=== PATIENT | male | born 1950 | race Caucasian/White ===

== ENCOUNTER → 2020-09-15 09:41 | Outpatient (CLI) | payer OTHER, SELFPAY ==
[2020-09-15 12:01] LABS: COVID19 -Nasal RAPID Negative (Negative)
== END ==
PROVIDERS: Visit Provider Physician Assistant
DX: Z01.812 Encounter for preprocedural laboratory examination (principal); Z20.822 Contact with and (suspected) exposure to COVID-19
CPT/HCPCS: 87635; C9803

== ENCOUNTER 2020-09-17 12:02 | Day surgery (SDC) | payer OTHER, SELFPAY ==
--- NOTE | 2020-09-17 | PATH_ITS ---
[facility] Accession Number: [id number] . 01 Material submitted: . PART A: colon - ASCENDING COLON POLYP X8; 6MM TO 8MM PART B: colon - VIABLE POLYP BIOPSY, ASCENDING COLON; 1.5CM PART C: colon - TRANSVERSE COLON POLYP; 11MM PART D: colon - TRANSVERSE COLON POLYP; 2MM PART E: colon - DESCENDING COLON POLYP X3; 4MM; 6MM; 3MM PART F: colon - SIGMOID COLON POLYP X2; 8MM; 3MM PART G: colon - SIGMOID COLON POLYP BIOPSY AT 45CM; 1.25CM . 02 Diagnosis: A. Ascending Colon, Polyp x8, 6 mm to 8 mm, Biopsies: Tubular adenomas. . B. Ascending Colon, Viable Polyp 1.5 cm, Biopsy: Superficial fragments of tubulovillous adenoma. No evidence of malignancy or high-grade dysplasia. . C. Transverse Colon, Polyp 11 mm, Biopsy: Tubular adenoma. . D. Transverse Colon, Polyp 2 mm, Biopsy: Tubular adenoma. . E. Descending Colon, Polyp x3, 4 mm, 6 mm, 3 mm, Biopsies: Tubular adenomas. . F. Sigmoid Colon, Polyp x2, 8 mm, 3 mm, Biopsies: Tubular adenomas. . G. Sigmoid Colon, Polyp at 45 cm, 1.25 cm, Biopsy: Tubulovillous adenoma. No evidence of malignancy or high-grade dysplasia. [facility] 09/21/2020 1542 Local . 02 Electronically signed: . Ana Sanders MD, Pathologist NPI- [id number] . 01 Gross description: . A. Received in formalin, labeled ascending colon polyp x8, are multiple fragments of padgett, soft tissue measuring 2.5 x 1.8 x 0.8 cm in aggregate. All tissue is entirely submitted in cassette A1. B. Received in formalin, labeled viable polyp ascending colon 1.5 cm, is one fragment of padgett, soft tissue measuring 0.5 x 0.3 x 0.2 cm. The tissue is entirely submitted in cassette B1. C. Received in formalin, labeled transverse colon polyp 11 mm, are two fragments of padgett, soft tissue measuring 0.3 x 0.2 x 0.1 cm to 0.2 x 0.2 x 0.2 cm. One larger piece of tissue is also observed, measuring 0.8 x 0.5 x 0.7 cm. The two smaller fragments are entirely submitted in cassette C1. The larger piece is inked, trisected, and entirely submitted in cassette C1. Cassette C1 contains a total of five pieces. D. Received in formalin, labeled transverse colon polyp 2 mm, is one fragment of padgett, soft tissue measuring 0.4 x 0.4 x 0.3 cm. The tissue is entirely submitted in cassette D1. E. Received in formalin, labeled descending colon polyp x3, are five fragments of padgett, soft tissue measuring 0.8 x 0.3 x 0.3 cm to 0.5 x 0.3 x 0.2 cm. All five fragments are entirely submitted in cassette E1. F. Received in formalin, labeled sigmoid colon polyp 8 mm, 3 mm x2, are four fragments of padgett, soft tissue measuring 0.4 x 0.4 x 0.3 cm to 0.3 x 0.2 x 0.1 cm. All four fragments are entirely submitted in cassette F1. G. Received in formalin, labeled sigmoid polyp biopsy at 45 cm, is one fragment of padgett, soft tissue measuring 0.6 x 0.4 x 0.3 cm. The tissue is entirely submitted in cassette G1. ([id number]) /FRR 09/18/2020 1420 Local . 02 Pathologist provided ICD-10: D12.2, D12.3, D12.4, D12.5 . 02 CPT . 374356, 500505, [id number], [id number], 633609, [id number], 570483 Performed at: [address] [facility] [address], [place], [place] [id number] MD Juan Ramon Fajardo MD Phone: [phone] Performed at: [facility] [address] [place] [id number] MD Ana Sanders MD Phone: [phone]
--- NOTE | 2020-09-17 09:28 | PM.HP.1 ---
History of Present Illness History of Present Illness Date Patient Seen: 09/17/20 Chief complaint: SCREENING COLONOSCOPY Narrative: 69 year old male or comes in today for consideration of a screening colonoscopy. Three lifetime endoscopies, 1 flexible sigmoidoscopy and two colonoscopies, 3 years overdue for his repeat. History of colon polyps, records not available at time of dictation. Patient reports that he had 14 polyps at his first colonoscopy and 7 polyps at his last colonoscopy. There have been no lower GI symptoms suggesting disease such as change in bowel habits, bleeding, abdominal pain or anemia. There's been no family history of colon cancer or colon polyps. Overall health issues have been stable, including no major cardiac events for at least 6 weeks. PCP: JOHANNA Hernandes Past medical history: Eczema Hypertension Colon polyps Past surgical history: Colonoscopy x2 Flexible sigmoidoscopy x1 Family history: Father: at 56, cancer Mother: in 7, cancer Siblings: 20 sister, healthy Social history: , lives alone. Retired staffing administrator. 2-3 to drinks per day. Patient History Medical History (Updated 09/17/20 @ 11:59 by Carey Pacheco RN) Erectile dysfunction HTN (hypertension) Pre-diabetes Meds Home Medications and Allergies Home Medications Medication Instructions Recorded Confirmed Type amlodipine benzoate 5 mg PO DAILY 09/17/20 09/17/20 History omeprazole 20 mg PO QAM 09/17/20 09/17/20 History sildenafil 100 mg PO PRN PRN 09/17/20 09/17/20 History Allergies Allergy/AdvReac Type Severity Reaction Status Date / Time No Known Drug Allergies Allergy Verified 09/17/20 11:53 Review of Systems Review of Systems ROS: Yes All systems reviewed with the patient and are negative except as otherwise documented Exam Narrative Exam Narrative: GENERAL: Alert and oriented, appearing stated age and in no acute distress. HEENT: Head normocephalic/atraumatic. Pupils equal, round, and reactive to light and accomodation. Extraocular muscles intact. Tympanic membranes clear. Nasal mucosa moist, septum midline. Oral mucosa moist, no lesions. Neck soft and supple, no lymphadenopathy. LUNGS: Clear to ausculation bilaterally, no wheezes, rhonchi or rales. CV: Normal S1 and S2 with regular rate and rhythm, no audible murmurs, rubs or gallops. ABDOMEN: Soft, non-tender, non-distended, no organomegaly. Positive bowel sounds. EXTREMITIES: No clubbing, cyanosis, or edema. NEURO: Cranial nerves II through XII grossly intact, no focal deficits. PSYCH: Alert and oriented x 3. SKIN: No concerning lesions. Assessment & Plan Assessment & Plan narrative: 1. History of colon polyps 2. Screening for colon cancer Plan for colonoscopy. The nature and character of the procedure as well as anticipated results were discussed. The possibility of not completing the procedure was also discussed. Possible complications including aspiration pneumonia, bleeding, perforation and reaction to medications either for sedation or preparation and missed lesions were discussed. Questions were answered and proceeding to the colonoscopy was elected. Informed consent signed. I sincerely appreciate the referral allowing me to participate in this patient's care. Please contact me with any questions or concerns.
--- NOTE | 2020-09-17 09:32 | PM.OP.ENDO ---
Operative Date/Time/Diagnoses Date of procedure: 09/17/20 Procedure Notes SCOAP/Timeout: 13:18 Procedure in detail: ENDOSCOPIST: Xochitl Jo MD Sedation RN: Alfredo Jones RN Sedation start time: 1:19 pm Sedation end time: 2:44 p.m. PROCEDURE: Colonoscopy with cold snare polypectomies and methylene blue lifts, SPOT placement x 2 INDICATIONS: 1. History of colon polyps 2. Screening for colon cancer MEDICATION: Levsin 0.125 mg sublingual, incremental doses of Versed and fentanyl until appropriate level sedation achieved. ASA CLASS: 2 CECAL WITHDRAWAL TIME: 1 hour 21 minutes COMPLICATIONS: None. EXTENT OF PROCEDURE: Cecum. QUALITY OF PREP: Good with portions of liquid stool. PROCEDURE: Prior to insertion of the colonoscope, a digital rectal examination was accomplished with circumferential palpation of the distal rectal mucosa without significant findings being noted. The high-definition colonoscope was passed into the rectum in the usual fashion and advanced over to the cecum without difficulty. The ileocecal valve, appendiceal stoma, and medial wall all could be inspected and no abnormalities were seen. ASCENDING COLON: As the colonoscope was withdrawn, care was taken to expose and inspect the haustral folds and 8 polyps were seen, 8-10 mm in size. Each was lifted with methylene blue and removed with cold snare, excellent hemostasis noted. A larger polyp, 1.5 cm in size was noted to be friable and covered with adherent mucous, targeted biopsy taken x 1 and SPOT placed 2 cm distal to polyp, on medial and lateral colonic nunez. HEPATIC FLEXURE: Normal, no polyps, diverticula or other abnormalities. TRANSVERSE COLON: Two polyps seen. The 2 mm polyp was removed with cold biopsy forceps. The 11 mm polyp was lifted with methylene blue and removed with cold biopsy forceps, excellent hemostasis noted. Otherwise, no diverticula or other abnormalities. DESCENDING COLON: Three polyps seen, 4-6 mm, removed with cold biopsy forceps, excellent hemostasis. Otherwise, no diverticula or other abnormalities. SIGMOID COLON: A small 3 mm polyp was seen and removed with cold biopsy forceps. A 1.25 cm polyp on broad based stalk was also seen, targeted biopsy taken x 1 and SPOT placed x 2, 2 cm distal to lesion on medial and lateral colonic nunez. Otherwise, no diverticula or other abnormalities. RECTUM: Normal. J maneuver was produced. There was no significant perianal disease. The J maneuver was broken. The remainder of the rectum was inspected and there was no external hemorrhoid disease. The scope was withdrawn. IMPRESSION: 1. Ascending polyp x8, 6-8 mm, lifted with methylene blue and removed with cold snare 2. Ascending polyp x1, 1.5 cm, friable, targeted biopsy x1, unresected, SPOT placement x2 3. Transverse polyp x2, 2-11 mm, smaller polyp removed with cold snare, larger polyp lifted with methylene blue and removed with cold snare 4. Descending polyp x3, 4-6 mm, removed with cold biopsy forceps 5. Sigmoid polyp times x1, 3 mm, removed with cold snare 6. Sigmoid polyp x1, 1.25 cm broad-based stalk, targeted biopsy taken x1, unresected, SPOT placement x2 PLAN: 1. Follow-up in clinic status post pathology results. 2. Secondary to prolonged procedure time due to 14 polypectomies and risk of perforation, large polyps x [address] and patient will need to return for follow-up colonoscopy for remaining 2 large unresected polyps. The possibility of a missed lesion including a malignancy has been discussed with the patient previously. Potential alarm symptoms have been discussed and should be reported immediately.
[2020-09-17] MEDS: HYOSCYAMINE 0.125 MG TABLET PO (12:17)
[2020-09-17 12:24] VITALS: BP 139/91; PULSE 78; RESP 16; TEMP 36.5; O2SAT 97; BMI 29.8
[2020-09-17] MEDS: LACTATED RINGERS 1,000 ML 200 ML IV ×2 (12:31→14:57)
[2020-09-17] MEDS: MIDAZOLAM 5 MG/5 ML VIAL IV (13:37)
[2020-09-17] MEDS: fentaNYL 250 MCG/5 ML INJ IV (13:38)
[2020-09-17 14:51] VITALS: BP 122/75; PULSE 69; RESP 15; TEMP 36.6; O2SAT 96
[2020-09-17 14:56] VITALS: BP 133/91; PULSE 67; RESP 16; O2SAT 95
[2020-09-17] MEDS: METHYLENE BLUE 50 MG/10 ML VIAL INJ (14:56)
[2020-09-17 15:02] VITALS: BP 135/91; PULSE 60; RESP 11; O2SAT 97
[2020-09-17 15:08] VITALS: BP 137/96; PULSE 62; RESP 17; TEMP 36.2; O2SAT 96
[2020-09-17 15:30] VITALS: BP 131/84; PULSE 69; RESP 16; TEMP 36.4; O2SAT 97
--- NOTE | 2020-09-17 15:51 | SUR.PHASEII ---
Pt ready to go, called, left when ready and left in stable condition.
--- NOTE | 2020-09-17 15:52 | SUR.PHASEII ---
Late entry: Procedure note not completed, pt wanting to go, report to be mailed to pt., note left for RN to do.
== END 2020-09-17 15:41 | disposition home or self-care (01) ==
PROVIDERS: PCP Nurse Practitioner Family; Referring Provider Student in an Organized Health Care Education/Training Program; Visit Provider Student in an Organized Health Care Education/Training Program
PROC: 0DJD8ZZ Inspection of Lower Intestinal Tract, Via Natural or Artificial Opening Endoscopic (ICD-10-PCS; CPT 45378; principal; 2020-09-17 13:00)
DX: Z12.11 Encounter for screening for malignant neoplasm of colon (principal); Z86.010 Personal history of colon polyps; I10 Essential (primary) hypertension; D12.2 Benign neoplasm of ascending colon; D12.3 Benign neoplasm of transverse colon; D12.4 Benign neoplasm of descending colon; D12.5 Benign neoplasm of sigmoid colon
CPT/HCPCS: 45385; 45381; 45380; J2250; J3010; Q9968

== ENCOUNTER 2021-03-01 08:52 | Emergency (ER) | payer OTHER, SELFPAY ==
[2021-03-01] VITALS (9 sets, daily range): BP systolic 111–132; BP diastolic 60–86; PULSE 69–91; RESP 18–26; TEMP 36.6; O2SAT 88–97; BMI 28.5
[2021-03-01 09:16] LABS: Add Manual Diff / Slide Review NO; Basophils Absolute Auto 100 /uL (0-100); Basophils Percent Auto 0.4 % (0-2); Eosinophils Absolute Auto 0 /uL (0-450); Hemoglobin 11.2 g/dL (13.5-17.5); Lymphocytes Absolute Auto 600 /uL (1100-4500); Lymphocytes Percent Auto 3.8 % (25-40); Monocytes Absolute Auto 1600 /uL (0-900); Neutrophils Absolute Auto 13800 /uL (1500-7000); Neutrophils Percent Auto 85.8 % (50-75); Platelet Count 486 X10^3/uL (150-400); Red Blood Cell Count 3.86 X10^6/uL (4.5-5.9); Red Cell Distribution Width 14.1 % (11.6-14.8)
--- NOTE | 2021-03-01 09:16 | ED_ITS ---
HPI - General Adult General Chief complaint: Weakness Stated complaint: colon cancer surgery last week, no energy Time Seen by Provider: 03/01/21 09:03 Source: patient Mode of arrival: Wheelchair History of Present Illness HPI narrative: Patient is a 70-year-old male. Four weeks ago underwent a colon resection after being diagnosed with colon cancer. The colon cancer was diagnosed after 2 polyps were found on a routine colonoscopy. He states that the procedure went well. He had a follow-up 2 weeks ago with the surgeon. Was told to follow up locally in that he did not need to return to the surgery office. He states that for the past couple weeks he has had fatigue, decreased appetite, some nausea but he feels like the decreased appetite is not because he is having nausea. He has no abdominal pain. Has had decreased stool output but he feels like it is because he has not been eating. No painful bowel movements. No blood in his stool. No abdominal pain. No urinary symptoms. No rashes. No headache. No sore throat. No fevers. No vision changes. Is also been noticed that he has been somewhat short of breath. No chest pain. Has been having some coughing. He is vaccinated against COVID-19. No underlying lung issues. Has not tried anything for symptoms prior to arrival. Related Data Home Medications Medication Instructions Recorded Confirmed amlodipine benzoate 5 mg PO DAILY 09/17/20 09/17/20 omeprazole 20 mg PO QAM 09/17/20 09/17/20 sildenafil 100 mg PO PRN PRN 09/17/20 09/17/20 Allergies Allergy/AdvReac Type Severity Reaction Status Date / Time No Known Drug Allergies Allergy Verified 03/01/21 09:07 Review of Systems Constitutional Constitutional: Reports fatigue, Denies fever(s), Denies headache(s), Reports lethargy and Denies weight loss Eyes Eyes: Reports system reviewed and no additional complaints, except as documented ENT Ears, Nose, Mouth, and Throat: Reports system reviewed and no additional comp laints, except as documented, Reports as per HPI, Denies vertigo, Denies dizziness and Denies headache(s) Cardiovascular Cardiovascular: Reports as per HPI, Reports system reviewed and no additional complaints, except as documented, Reports dyspnea and Reports dyspnea on exertion Respiratory Respiratory: Reports as per HPI, Reports system reviewed and no additional complaints, except as documented, Reports cough, Reports dyspnea and Reports dyspnea on exertion Gastrointestinal Gastrointestinal: Reports as per HPI, Reports system reviewed and no additional complaints, except as documented, Denies change in bowel habits and Reports nausea Genitourinary Genitourinary: Reports system reviewed and no additional complaints, except as documented and Reports as per HPI Musculoskeletal Musculoskeletal: Reports system reviewed and no additional complaints, except as documented, Denies myalgias, Denies arthralgias, Denies myalgias and Denies numbness Integumentary/Breasts Skin/Breast: Reports system reviewed and no additional complaints, except as documented Neurologic Neurologic: Reports system reviewed and no additional complaints, except as documented, Denies confusion, Denies vertigo, Denies dizziness, Denies headache(s) and Denies numbness Psychiatric Psychiatric: Reports system reviewed and no additional complaints, except as documented and Denies confusion Endocrine Endocrine: Reports fatigue Hematologic/Lymphatic On Anticoagulants: No Allergic/Immunologic Allergic/Immunologic: Reports system reviewed and no additional complaints, except as documented Patient History Medical History Colon cancer Erectile dysfunction HTN (hypertension) Pre-diabetes Social History household members: significant other Smoking Status: Never smoker alcohol intake: current Smoking Status: Never smoker alcohol intake frequency: 0-2 drinks per day Substance Use Type: marijuana Exam Initial Vital Signs Initial Vital Signs: Vital Signs Pulse Rate 91 H 03/01/21 08:56 Blood Pressure 132/82 03/01/21 08:56 Pulse Oximetry 88 L 03/01/21 08:56 Const General: cooperative, comfortable, well developed and well groomed [facility] Head: normal to inspection and normocephalic Nose: external nose normal Face and sinus: normal facial exam Eyes General: appearance normal, both eyes and all related structures Chest Chest: No crepitus and No tenderness Resp Effort & Inspection: labored and tachypneic Auscultation: clear to auscultation bilaterally Cardio Rate: regular rate Rhythm: regular rhythm Pulses: radial pulses present GI Inspection: incision (Well-healed surgical incisions is consistent with stated surgical history) Palpation: soft, No firm and No tender Skin Lesions: no lesions Rashes: no rashes Other: Well-healed surgical incisions on his abdomen that are consistent with a stated history of your Neuro General: patient alert, patient awake, patient oriented x3 and moves all extremities Cognition: normal cognition Speech: speech normal Extrem General: normal to inspection, capillary refill normal and No edema Psych Appearance: grossly normal and well kempt Course Orders Ordered: ED Orders 03/01/21 09:03 EKG-12 Lead Stat 03/01/21 09:09 Complete Blood Count AUTO DIFF Stat Comprehensive Metabolic Panel Stat Lactate (Lactic Acid) Stat Lipase Stat NT-proBNP (BNP-Adult 18+) Stat Procalcitonin Stat Troponin & CK Cardiac Panel Stat 03/01/21 09:15 CT angio chest PE protocol Stat 03/01/21 09:24 Respiratory Panel (Film Array) Stat Discontinued Medications Sodium Chloride (Normal Saline 0.9%) 1,000 mls @ 500 mls/hr IV BOLUS ONE Stop: 03/01/21 11:14 Last Infusion: 03/01/21 11:28 Dose: 0 mls/hr Documented by: Admin: 03/01/21 09:32 Dose: 500 mls/hr Documented by: VALERIA Vital Signs Vital signs: Vital Signs - 8 hr 03/01/21 08:56 03/01/21 09:00 03/01/21 09:30 Temperature 97.8 F Pulse Rate 91 H 88 79 Respiratory Rate 18 25 H Blood Pressure 132/82 132/80 125/73 Pulse Oximetry 88 L 95 96 03/01/21 10:00 03/01/21 10:14 03/01/21 10:30 Temperature Pulse Rate 75 73 72 Respiratory Rate 26 H 20 22 Blood Pressure 111/60 123/68 116/70 Pulse Oximetry 95 97 95 03/01/21 11:00 03/01/21 11:30 03/01/21 12:00 Temperature Pulse Rate 69 70 69 Respiratory Rate 21 22 21 Blood Pressure 121/69 131/86 114/63 Pulse Oximetry 96 96 97 Medical Decision Making Medical Records Medical records reviewed: Yes I reviewed the patient's medical records. Lab Data Lab results reviewed: Yes I reviewed the patient's lab results. Result diagrams: 03/01/21 09:09 03/01/21 09:09 Labs: Lab Results 03/01/21 03/01/21 03/01/21 Range/Units 09:09 09:09 09:09 WBC 16.0 H (4.5-11.0) X10^3/uL RBC 3.86 L (4.5-5.9) X10^6/uL Hgb 11.2 L (13.5-17.5) g/dL Hct 34.0 L (41-53) % MCV 88.0 (80-100) fL MCH 29.0 (26-34) PG MCHC 33.0 (30-36) % RDW 14.1 (11.6-14.8) % Plt Count 486 H (150-400) X10^3/uL Neut % (Auto) 85.8 H (50-75) % Lymph % (Auto) 3.8 L (25-40) % Sumter % (Auto) 10.0 (3-14) % Eos % (Auto) 0.0 L (2-4) % Baso % (Auto) 0.4 (0-2) % Neut # (Auto) 27419 H (5103-2356) /uL Lymph # (Auto) 600 L (0892-7162) /uL Sumter # (Auto) 1600 H (0-900) /uL Eos # (Auto) 0 (0-450) /uL Baso # (Auto) 100 (0-100) /uL Sodium 133 L (137-145) mmol/L Potassium 3.9 (3.4-5.1) mmol/L Chloride 101 (98-107) mmol/L Carbon Dioxide 25 (22-32) mmol/L BUN 17 (9-20) mg/dL Creatinine 1.16 (0.66-1.25) mg/dL Estimated GFR > 60.0 (>60) mL/min BUN/Creatinine Ratio 14.7 (6-22) Glucose 112 H (80-110) mg/dL Lactate (0.7-2.1) mmol/L Calcium 8.0 L (8.4-10.2) mg/dL Total Bilirubin 0.8 (0.2-1.3) mg/dL AST 87 H (17-59) IU/L ALT 96 H (<50) IU/L Alkaline Phosphatase 264 H (38-126) U/L Total Creatine Kinase 27 L (55-170) U/L CK-MB (CK-2) TNP CK-MB (CK-2) Rel Index TNP Troponin I < 0.012 (0.01-0.034) ng/mL NT-Pro-B Natriuret Pep 534 H (<125) pg/mL Total Protein 6.4 (6.3-8.2) g/dL Albumin 3.2 L (3.5-5.0) g/dL Globulin 3.2 (1.7-4.1) g/dL Albumin/Globulin Ratio 1.0 (1.0-2.8) Lipase 54 (23-300) U/L Procalcitonin (<0.5) ng/mL Chlamy pneumoniae PCR (Not Detect) Adenovirus (PCR) (Not Detect) B. pertussis DNA (PCR) (Not Detecte) B.parapertussis DNA PCR (Not Detecte) Coronavirus OC43 (PCR) (Not Detect) Coronavirus HKU1 (PCR) (Not Detect) Coronavirus 229E (PCR) (Not Detect) SARS-CoV-2 (PCR) (Not Detecte) Coronavirus NL63 (PCR) (Not Detect) Human Metapneumovir PCR (Not Detect) Influenza Type A (PCR) (Not Detect) Influenza Type B (PCR) (Not Detect) M. pneumoniae (PCR) (Not Detect) Parainfluenza 1 (PCR) (Not Detect) Parainfluenza 2 (PCR) (Not Detect) Parainfluenza 3 (PCR) (Not Detect) Parainfluenza 4 (PCR) (Not Detect) RSV (PCR) (Not Detect) Entero/Rhino (PCR) (Not Detect) 03/01/21 03/01/21 03/01/21 Range/Units 09:09 09:09 09:24 WBC (4.5-11.0) X10^3/uL RBC (4.5-5.9) X10^6/uL Hgb (13.5-17.5) g/dL Hct (41-53) % MCV (80-100) fL MCH (26-34) PG MCHC (30-36) % RDW (11.6-14.8) % Plt Count (150-400) X10^3/uL Neut % (Auto) (50-75) % Lymph % (Auto) (25-40) % Sumter % (Auto) (3-14) % Eos % (Auto) (2-4) % Baso % (Auto) (0-2) % Neut # (Auto) (1727-7534) /uL Lymph # (Auto) (3059-2697) /uL Sumter # (Auto) (0-900) /uL Eos # (Auto) (0-450) /uL Baso # (Auto) (0-100) /uL Sodium (137-145) mmol/L Potassium (3.4-5.1) mmol/L Chloride (98-107) mmol/L Carbon Dioxide (22-32) mmol/L BUN (9-20) mg/dL Creatinine (0.66-1.25) mg/dL Estimated GFR (>60) mL/min BUN/Creatinine Ratio (6-22) Glucose (80-110) mg/dL Lactate 0.8 (0.7-2.1) mmol/L Calcium (8.4-10.2) mg/dL Total Bilirubin (0.2-1.3) mg/dL AST (17-59) IU/L ALT (<50) IU/L Alkaline Phosphatase (38-126) U/L Total Creatine Kinase (55-170) U/L CK-MB (CK-2) CK-MB (CK-2) Rel Index Troponin I (0.01-0.034) ng/mL NT-Pro-B Natriuret Pep (<125) pg/mL Total Protein (6.3-8.2) g/dL Albumin (3.5-5.0) g/dL Globulin (1.7-4.1) g/dL Albumin/Globulin Ratio (1.0-2.8) Lipase (23-300) U/L Procalcitonin 0.39 (<0.5) ng/mL Chlamy pneumoniae PCR Not detected (Not Detect) Adenovirus (PCR) Not detected (Not Detect) B. pertussis DNA (PCR) Not detected (Not Detecte) B.parapertussis DNA PCR Not detected (Not Detecte) Coronavirus OC43 (PCR) Not detected (Not Detect) Coronavirus HKU1 (PCR) Not detected (Not Detect) Coronavirus 229E (PCR) Not detected (Not Detect) SARS-CoV-2 (PCR) Not detected (Not Detecte) Coronavirus NL63 (PCR) Not detected (Not Detect) Human Metapneumovir PCR Not detected (Not Detect) Influenza Type A (PCR) Not detected (Not Detect) Influenza Type B (PCR) Not detected (Not Detect) M. pneumoniae (PCR) Not detected (Not Detect) Parainfluenza 1 (PCR) Not detected (Not Detect) Parainfluenza 2 (PCR) Not detected (Not Detect) Parainfluenza 3 (PCR) Not detected (Not Detect) Parainfluenza 4 (PCR) Not detected (Not Detect) RSV (PCR) Not detected (Not Detect) Entero/Rhino (PCR) Not detected (Not Detect) Imaging Data CT scan - chest: Radiologist's Impression: [address] [id number] Scan ReportSigned Patient: Jose Guillen RMR#: [id number]: 3Acct:[id number]/Sex: 70 / MDate of Service: 03/01/21Loc: EDAccession Number: [id number] Procedure: CT angio chest PE protocol Ordering Provider: Ajay Rodríguez D.O. PROCEDURE: CT ANGIO CHEST PE PROTOCOL INDICATIONS: Chest pain, shortness of breath, tachycardia TECHNIQUE: After the administration of intravenous contrast, 2 mm thick sections acquired from the pulmonary apices to the posterior costophrenic angles. 3-dimensional maximum intensity projection (MIP) coronal and sagittal reformats were then acquired through the thorax. For radiation dose reduction, the following was used: automated exposure control, adjustment of mA and/or kV according to patient size. COMPARISON: None. FINDINGS: Image quality: Excellent. Pulmonary arteries: Pulmonary arteries are normal in size, and demonstrate no intraluminal filling defects to suggest central pulmonary embolism. Lungs and pleura: There is a 6 mm nodule in the right lower lobe abutting the major fissure. There are right middle lobe and lower lobe scars and atelectasis. No pleural effusions or pneumothorax. Central and peripheral airways are patent. Mediastinum: Heart size is normal, without pericardial effusion. No mediastinal or hilar adenopathy. Thoracic aorta is normal in caliber and enhancement. There is a cystic mass posterior to the ascending thoracic aorta, probably a pericardial cyst. Esophagus is normal in caliber. No hiatal hernia. There is a 1.6 x 2.2 cm fatty lobule in the posterior mediastinum right of the distal esophagus, demonstrating peripheral hyperdensity, most likely secondary to fat necrosis. Bones and chest wall: No suspicious bony lesions. Ribs and thoracic spine appear intact throughout. Thyroid gland is normal. No axillary or supraclavicular adenopathy. Abdomen: Visualized upper abdominal solid organs appear normal in the early arterial phase of enhancement. There is a right adrenal nodule measuring 1.2 cm. IMPRESSION: 1. No evidence for pulmonary embolism. 2. A 6 mm nodule in the right lower lobe. Please see enclosed follow-up recommendation. 3. Right middle lobe and lower lobe scars and atelectasis. 4. A pericardial cyst posterior to the aortic arch. 5. 1.2 cm right adrenal nodule. Recommend nonurgent adrenal protocol CT or MRI for follow-up evaluation. Fleischner Society criteria for SOLID lung nodule followup. Nodule size (mm)Low-risk patientHigh-risk patient?4No follow-up neededFollow-up at 12 mo; if no change, no further follow-up>3-0Gjqiuw-eq CT at 12 mo; if no change, no further follow-up needed.Initial follow-up CT at 6-12 mo, then 18-24 mo if no change. >6-8Initial follow-up CT at 6-12 mo, then 18-24 mo if no change. Initial follow- up CT at 3-6 mo, then 9-12 mo and 24 mo if no change. >8Follow-up CT at 3, 9, 24 mo. Or PET and/or biopsy.Same as for low-risk pts. Dictated by: Maximiliano Cook M.D. on 03/01/2021 at 10:17 Approved by: Maximiliano Cook M.D. on 03/01/2021 at 10:34 [facility] Narrative Medical decision making narrative: Patient is nontoxic appearing. He has no abdominal tenderness. Has had no blood in his urine. No blood in his stool. No vomiting. Does have a leukocytosis. I do not have a specific source of this elevation in his white blood cell count. He is slightly anemic but this is not to the point what I would expect be causing the symptoms that he comes in with today. The CT scan of his chest does not show any signs of pulmonary embolism. He does have lung nodule. He was informed of this. Rest of his labs are unremarkable. It appears that his issues with eating are not because of nausea or pain but because of his lack of appetite. I did discuss this with him. Informed him that he should schedule times for him to eat and that he should eat despite not being hungry. This could be a significant cause of his fatigue. Unsure the cause of his shortness of breath. No signs of pneumonia. No signs of fluid overload. No pulmonary embolism. No indication for antibiotics. I did discuss the case with Dr. Jo who is on-call for the patient's primary provider. She will get a message to the patient's primary doctor and have him followed up sometime within the next week for further evaluation. She was also informed of the pulmonary nodule. I discussed all this with the patient. He w as given return precautions and follow-up instructions. He expressed understanding and agreement. Discharge Plan Departure Patient Disposition: Home Clinical Impression: Fatigue, Shortness of breath Instructions: DI for Fatigue Activity Restrictions/Additional Instructions: I did talk with your primary care doctor's office today and they should be contacting you for a follow-up within the next couple days. You do need to make a point to eat 3 balanced meals a day despite your lack of appetite. Return to the emergency department for any new or worsening symptoms Prescriptions: No Action amlodipine benzoate 5 mg PO DAILY RF: 0 omeprazole 20 mg PO QAM RF: 0 sildenafil 100 mg PO PRN PRN (Reason: Sexual Activity) RF: 0 Referrals: Kelly Teran ARNP [Primary Care Provider] -
[2021-03-01] MEDS: SODIUM CHLORIDE 0.9% 1,000 ML 500 ML IV (09:32)
[2021-03-01 09:41] LABS: Lactate (Lactic Acid) 0.8 mmol/L (0.7-2.1)
[2021-03-01 09:42] LABS: Alanine Aminotransferase 96 IU/L (<50); Albumin 3.2 g/dL (3.5-5.0); Alkaline Phosphatase 264 U/L (38-126); Aspartate Aminotransferase 87 IU/L (17-59); BUN Creatinine Ratio 14.7 (6-22); Bilirubin Total 0.8 mg/dL (0.2-1.3); Blood Urea Nitrogen 17 mg/dL (9-20); Carbon Dioxide 25 mmol/L (22-32); Chloride 101 mmol/L (98-107); Creatine Kinase 27 U/L (55-170); Estimated Glomerular Filt Rate > 60.0 mL/min (>60); Globulin 3.2 g/dL (1.7-4.1); Glucose 112 mg/dL (80-110); HEMOLYSIS < 15 (0-50); Lipase 54 U/L (23-300); Potassium 3.9 mmol/L (3.4-5.1); Sodium 133 mmol/L (137-145); Total Protein 6.4 g/dL (6.3-8.2)
[2021-03-01 09:50] LABS: NT-proBNP (BNP-Adult 18+) 534 pg/mL (<125)
[2021-03-01 09:53] LABS: Troponin I < 0.012 ng/mL (0.01-0.034)
[2021-03-01 09:59] LABS: Procalcitonin 0.39 ng/mL (<0.5)
[2021-03-01 10:33] LABS: Adenovirus Not Detected (Not Detect); B. parapertussis Not Detected (Not Detecte); Bordetella pertussis Not Detected (Not Detecte); Chlamydophila pneumoniae Not Detected (Not Detect); Coronavirus 229E Not Detected (Not Detect); Coronavirus HKU1 Not Detected (Not Detect); Coronavirus NL 63 Not Detected (Not Detect); Coronavirus OC43 Not Detected (Not Detect); Human Metapneumovirus Not Detected (Not Detect); Human Rhinovirus/Enterovirus Not Detected (Not Detect); Influenza A Not Detected (Not Detect); Influenza B Not Detected (Not Detect); Mycoplasma pneumoniae Not Detected (Not Detect); Parainfluenza Virus 1 Not Detected (Not Detect); Parainfluenza Virus 2 Not Detected (Not Detect); Parainfluenza Virus 3 Not Detected (Not Detect); Parainfluenza Virus 4 Not Detected (Not Detect); Respiratory Syncytial Virus Not Detected (Not Detect); SARS- CoV-2 Not Detected (Not Detecte)
== END 2021-03-01 12:18 | disposition home or self-care (01) ==
PROVIDERS: Emergency Provider Emergency Medicine; PCP Nurse Practitioner Family
DX: R53.83 Other fatigue (principal); R06.02 Shortness of breath; R07.9 Chest pain, unspecified; R00.0 Tachycardia, unspecified; Z20.822 Contact with and (suspected) exposure to COVID-19
CPT/HCPCS: 36415; 71275; 80053; 82550; 83605; 83690; 83880; 84145; 84484; 85025; 87633; 96360; 96361; 99284

== ENCOUNTER → 2022-03-20 11:20 | Outpatient (CLI) | payer OTHER, SELFPAY ==
[2022-03-20 12:17] LABS: COVID19 -Nasal RAPID Negative (Negative)
== END ==
PROVIDERS: PCP Nurse Practitioner Family; Visit Provider Surgery
DX: Z20.822 Contact with and (suspected) exposure to COVID-19 (principal); Z01.812 Encounter for preprocedural laboratory examination
CPT/HCPCS: 87635; C9803

== ENCOUNTER 2022-03-21 07:18 | Day surgery (SDC) | payer OTHER, SELFPAY ==
--- NOTE | 2022-03-21 | PATH_ITS ---
[facility] Accession Number: [id number] . 01 Material submitted: . colon - DESCENDING COLON POLYP X2 80CM . 01 Diagnosis: Descending Colon, Polyp x2, 80 cm, Biopsy: Tubular adenoma in one of two fragments. MRV 03/22/2022 1445 Local . 01 Electronically signed: . Ana Sanders MD, Pathologist NPI- [id number] . 01 Gross description: . DESCENDING COLON POLYP X2 80CM: Received in formalin are 2 fragment(s) of padgett, soft tissue measuring 0.3 x 0.3 x 0.2 cm to 0.5 x 0.5 x 0.3 cm submitted entirely in 1 cassette(s) /RAO 03/21/2022 2335 Local . 01 Pathologist provided ICD-10: D12.4 . 01 CPT . 497059 Performed at: 01 [facility] [address] [place] [address] [address], [place], [place] [id number] MD Juan Ramon Fajardo MD Phone: [phone]
[2022-03-21 07:51] VITALS: BP 135/88; PULSE 83; RESP 16; TEMP 36.4; O2SAT 96; BMI 29.3
[2022-03-21] MEDS: LACTATED RINGERS 1,000 ML 200 ML IV (08:06)
--- NOTE | 2022-03-21 08:37 | PM.HP.1 ---
History of Present Illness History of Present Illness Date Patient Seen: 03/21/22 Time Patient Seen: 08:38 Chief complaint: DX COLONOSCOPY Narrative: 71-year-old man history of colon cancer status post right hemicolectomy 2020. Outside records are not available at this time for review. . He did not require the adjuvant therapy. No recent changes in gastrointestinal health/symptoms Patient History Medical History Colon cancer Erectile dysfunction HTN (hypertension) Pre-diabetes Family & Social History Social History: household members significant other Tobacco & Substance use: Smoking Status Never smoker alcohol intake current alcohol intake frequency 0-2 drinks per day Substance Use Type marijuana Meds Home Medications and Allergies Home Medications Medication Instructions Recorded Confirmed Type amlodipine benzoate 5 mg PO DAILY 09/17/20 03/21/22 History omeprazole 20 mg PO QAM 09/17/20 03/21/22 History sildenafil 100 mg PO PRN PRN Sexual Activity 09/17/20 03/21/22 History Allergies Allergy/AdvReac Type Severity Reaction Status Date / Time No Known Drug Allergies Allergy Verified 03/21/22 07:46 Exam Vital Signs (past 8 hours): - 03/21/22 07:51 Temperature 97.6 F Pulse Rate 83 Respiratory Rate 16 Blood Pressure 135/88 Pulse Oximetry 96 Oxygen Delivery Method Room Air Oxygen Delivery Method Room Air Narrative Exam Narrative: General adult male alert oriented no acute distress Abdomen soft nontender nondistended Assessment & Plan Assessment & Plan narrative: The patient requires colorectal screening and colonoscopy is recommended. Technical details were discussed. Risks, benefits, alternatives explained. Risks including but not limited to myocardial infarction, aspiration, bleeding, pain, missed lesion, incomplete examination, need for further radiographic studies, colonic perforation, and need for major abdominal surgery were discussed. All questions were answered to their satisfaction, and they are in agreement with this plan. Time Spent With Patient Critical Care time: I spent a total of [] minutes of critical care time on this patient's care today; this time is exclusive of procedural time.
--- NOTE | 2022-03-21 08:41 | P.OP.COLON_ITS ---
Operative Date/Time/Diagnoses Date of procedure: 03/21/22 Time of procedure: 09:08 Pre-op diagnosis: History of colon cancer Post-op diagnosis: same Procedure & Clinicians Study performed: Colonoscopy and polypectomy Same procedure as scheduled: Yes Indications: History of colon cancer status post right hemicolectomy 1 year ago Surgeon: Sandeep Madrid Procedure Notes Procedure in detail: Medications: Conscious sedation using 8mg IV midazolam and 100mcg IV of fentanyl The history and physical was performed/updated and the patient is ASA class is 2. The procedure was discussed in detail with the patient. Potential risks complications including infection, bleeding, missed diagnosis, perforation, need for surgery, and were explained. Their questions were answered and informed consent was obtained. Patient was brought to the procedure room and placed standard monitoring equipment. The patient's vital signs were monitored continuously throughout the entire procedure. Prior to starting time-out was performed. The patient was placed in the left lateral recumbent position. Procedural sedation was administered. Examination began with a thorough inspection of the perianal area there was no evidence of fissures, fistulae, external hemorrhoids or cutaneous malignancy. The colonoscopy scope was then placed into the anal canal and forward it to the ileocolic anastomosis. The anastomosis was normal in its appearance. The scope was then slowly withdrawn examining colon thoroughly in all directions, irrigating it of any residual stool. FINDINGS 1. Normal ileal colonic anastomosis 2. Descending colon 80 cm -2 3 mm polyps removed with biopsy forceps The patient tolerated the procedure well. They will be discharged once criteria are met. The prep was of fair quality. The withdrawl time was 11 minutes. T he sedation time was 20 minutes. Specimen(s): other (Descending colonic polyps) Complications: none Impression: Colonic polyps Post-procedure Recommendations: Colonoscopy in 1 year Disposition: same day surgery
[2022-03-21] MEDS: fentaNYL 100 MCG/2 ML INJ IV (08:46)
[2022-03-21] MEDS: MIDAZOLAM 5 MG/5 ML VIAL 8 MG IV (08:51)
[2022-03-21 09:12] VITALS: BP 138/92; PULSE 60; RESP 15; TEMP 36.3; O2SAT 97
[2022-03-21 09:16] VITALS: BP 138/96; PULSE 59; RESP 18; O2SAT 97
[2022-03-21 09:21] VITALS: BP 129/88; PULSE 73; RESP 12; O2SAT 98
[2022-03-21 09:30] VITALS: BP 135/88; PULSE 74; RESP 18; TEMP 36.3; O2SAT 98
== END 2022-03-21 09:30 | disposition home or self-care (01) ==
PROVIDERS: PCP Internal Medicine; Referring Provider Surgery; Visit Provider Surgery
PROC: 0DJD8ZZ Inspection of Lower Intestinal Tract, Via Natural or Artificial Opening Endoscopic (ICD-10-PCS; CPT 45378; principal; 2022-03-21 08:30)
DX: Z12.11 Encounter for screening for malignant neoplasm of colon (principal); Z85.038 Personal history of other malignant neoplasm of large intestine; Z90.49 Acquired absence of other specified parts of digestive tract; D12.4 Benign neoplasm of descending colon
CPT/HCPCS: 45380; 99152; J2250; J3010

== ENCOUNTER → 2022-04-07 14:00 | Outpatient (CLI) | payer OTHER, SELFPAY ==
--- NOTE | 2022-04-07 | DI.RAD.S_ITS ---
PROCEDURE: XR ANKLE RT MIN 3V INDICATIONS: RIGHT ACHILLES STRAIN TECHNIQUE: 3 views of the ankle were acquired. COMPARISON: None. FINDINGS: Bones: [id number] arthrosis. Age-indeterminate bone fragment adjacent to the lateral malleolus may be due to an age-indeterminate injury. Plantar enthesopathy. Soft tissues: There is thickening of the distal Achilles tendon. There is some edema in Kager's fat pad. IMPRESSION: Thickening and edema in Kager's fat pad and distal Achilles tendon. Consider further evaluation with ultrasound or MRI. Blzy-gp-kvkxxezs degenerative changes. Age-indeterminate bone fragment adjacent to the lateral malleolus. Dictated by: Vickey Pope M.D. on 04/07/2022 at 16:24 Approved by: Vickey Pope M.D. on 04/07/2022 at 16:26
== END ==
PROVIDERS: PCP Internal Medicine; Referring Provider Internal Medicine; Visit Provider Internal Medicine
DX: M76.60 Achilles tendinitis, unspecified leg (principal)
CPT/HCPCS: 73610

== ENCOUNTER 2023-04-17 06:53 | Day surgery (SDC) | payer OTHER, SELFPAY ==
--- NOTE | 2023-04-17 | PATH_ITS ---
[facility] Accession Number: [id number] No. of containers..02 Tissue . 01 Material submitted: . PART A: colon - TRANSVERSE POLYP PART B: colon - DESCENDING POLYP X 2 . 01 Diagnosis: A. COLON, TRANSVERSE, POLYP BIOPSY: - TUBULAR ADENOMA/S (IN AT LEAST TWO FRAGMENTS) --- B. COLON, DESCENDING, POLYP X2, BIOPSIES: - TUBULOVILLOUS ADENOMA IN ONE POLYP. - SUBTLE FEATURES SUGGESTIVE OF TUBULAR ADENOMA IN SECOND POLYP. TXN 04/25/2023 1534 Local . 01 Electronically signed: . Tawmartínez Waltesr MD, Pathologist NPI- [id number] . 01 Gross description: . Part A: TRANSVERSE POLYP: Received in formalin are 3 fragment(s) of padgett, soft tissue measuring 0.1 x 0.1 x 0.1 cm to 0.3 x 0.3 x 0.2 cm submitted entirely in 1 cassette(s) Part B: DESCENDING POLYP X 2: Received in formalin are 2 fragment(s) of padgett, soft tissue measuring 0.1 x 0.1 x 0.1 cm to 0.5 x 0.3 x 0.3 cm submitted entirely in 1 cassette(s) /RAO 04/18/2023 1838 Local . 01 Pathologist provided ICD-10: Z12.11 . 01 CPT . 832505, 127737 Specimen Comment: A courtesy copy of this report has been sent to [phone] Performed at: 01 [facility] [address] [place] [address], [place], [place] [id number] MD Juan Ramon Fajardo MD Phone: [phone]
[2023-04-17 07:16] VITALS: BMI 29.1
[2023-04-17 07:21] VITALS: BP 135/98; PULSE 83; RESP 17; TEMP 36.2; O2SAT 96
[2023-04-17] MEDS: LACTATED RINGERS 1,000 ML 42 ML IV (07:25)
--- NOTE | 2023-04-17 08:12 | P.HP_ITS ---
History of Present Illness History of Present Illness Date Patient Seen: 04/17/23 Time Patient Seen: 08:12 Chief complaint: Dx Colonoscopy Narrative: 72-year-old man history of colon cancer status post right hemicolectomy 2020. Did not require adjuvant therapy. Colonoscopy last year demonstrated benign polyps. No abdominal pain unintentional weight loss rectum anorexia. [facility] Medical History Colon cancer Pre-diabetes Erectile dysfunction HTN (hypertension) Surgical History History of colon resection Social History household members: significant other Smoking Status: Never smoker alcohol intake: current Meds Home Medications and Allergies Home Medications Medication Instructions Recorded Confirmed Type amlodipine 5 mg tablet 5 mg PO DAILY ##0 09/17/20 04/17/23 History omeprazole 20 mg capsule,delayed 20 mg PO DAILY ##0 09/17/20 04/17/23 History release sildenafil 100 mg tablet 100 mg PO DAILY PRN Sexual 09/17/20 04/17/23 History Activity ##0 sodium,potassium,mag sulfates 17.5 See Rx Instructions PO .COMPLEX 04/16/23 04/17/23 Rx gram-3.13 gram-1.6 gram oral soln #354 mL (Suprep Bowel Prep Kit) Allergies Allergy/AdvReac Type Severity Reaction Status Date / Time No Known Drug Allergies Allergy Verified 04/17/23 07:12 Exam Vital Signs (past 8 hours): - 04/17/23 07:21 Temperature 97.2 F L Pulse Rate 83 Respiratory Rate 17 Blood Pressure 135/98 H Pulse Oximetry 96 Oxygen Delivery Method Room Air Oxygen Delivery Method Room Air Narrative Exam Narrative: General adult man alert oriented no acute distress Chest nonlabored respiration Extremities warm well perfused Assessment & Plan Assessment & Plan narrative: 72-year-old man history of colon cancer status post right hemicolectomy 2020 here for screening colonoscopy. The patient requires colorectal screening and colonoscopy is recommended. Technical details were discussed. Risks, benefits, alternatives explained. Risks including but not limited to myocardial infarction, aspiration, bleeding, pain, missed lesion, incomplete examination, need for further radiographic studies, colonic perforation, and need for major abdominal surgery were discussed. All questions were answered to their satisfaction, and they are in agreement with this plan.
--- NOTE | 2023-04-17 08:23 | P.OP.COLON_ITS ---
Operative Date/Time/Diagnoses Date of procedure: 04/17/23 Time of procedure: 08:24 Pre-op diagnosis: history of colon cancer Post-op diagnosis: other (Colonic polyps x3) Procedure & Clinicians Study performed: Colonoscopy and polypectomy Same procedure as scheduled: Yes Indications: History of colon cancer status post right hemicolectomy 2020 Colorectal screening Surgeon: Sandeep Madrid Procedure Notes Procedure in detail: The history and physical was performed/updated and the patient is ASA class is 2. The procedure was discussed in detail with the patient. Potential risks complications including infection, bleeding, missed diagnosis, perforation, need for surgery, and were explained. Their questions were answered and informed consent was obtained. Patient was brought to the procedure room and placed standard monitoring e quipment. The patient's vital signs were monitored continuously throughout the entire procedure. Prior to starting time-out was performed. The patient was placed in the left lateral recumbent position. Procedural sedation was administered by anesthesia. Examination began with a thorough inspection of the perianal area there was no evidence of fissures, fistulae, external hemorrhoids or cutaneous malignancy. The colonoscopy scope was then placed into the anal canal and was advanced to the cecum, which was identified by the ileocecal valve, the appendiceal orifice and the confluence of the taenia. The scope was then slowly withdrawn examining colon thoroughly in all directions, irrigating it of any residual stool. The scope was retroflexed within the rectum The patient tolerated the procedure well. They will be discharged once criteria are met. The prep was of good/excellent quality. The withdrawl time was 7 minutes. FINDINGS * Normal ileal colic anastomosis patent and without evidence of recurrent disease. * Transverse colon-5 mm polyp removed with biopsy forceps * Descending colon 3 mm polyps x2 removed with biopsy forceps Specimen(s): other (Transverse and descending colonic polyps) Complications: none Impression: Colonic polyps x3 Post-procedure Recommendations: Colonoscopy in 1 year Plan for aftercare: Follow-up dependent on pathology findings likely 1 year Disposition: same day surgery
[2023-04-17 08:45] VITALS: BP 99/69; PULSE 66; RESP 14; TEMP 36.3; O2SAT 93
[2023-04-17 08:51] VITALS: BP 112/80; PULSE 72; RESP 16; O2SAT 95
[2023-04-17 08:55] VITALS: BP 110/82; PULSE 79; RESP 17; O2SAT 94
[2023-04-17 09:02] VITALS: BP 131/99; PULSE 71; RESP 19; TEMP 36.6; O2SAT 94
== END 2023-04-17 09:15 | disposition home or self-care (01) ==
PROVIDERS: PCP Internal Medicine; Referring Provider Surgery; Visit Provider Surgery
PROC: 0DJD8ZZ Inspection of Lower Intestinal Tract, Via Natural or Artificial Opening Endoscopic (ICD-10-PCS; CPT 45378; principal; 2023-04-17 08:15)
DX: Z12.11 Encounter for screening for malignant neoplasm of colon (principal); Z85.038 Personal history of other malignant neoplasm of large intestine; Z90.49 Acquired absence of other specified parts of digestive tract; D12.3 Benign neoplasm of transverse colon; D12.4 Benign neoplasm of descending colon
CPT/HCPCS: 45380; J2704

== ENCOUNTER → 2023-11-01 09:19 | Outpatient (CLI) | payer OTHER, SELFPAY | PROVIDERS: PCP Internal Medicine; Visit Provider Physician Assistant Surgical | DX: L02.212 Cutaneous abscess of back [any part, except buttock and flank] (principal) | CPT/HCPCS: 87070; 87205 ==

== ENCOUNTER 2024-07-15 08:43 | Day surgery (SDC) | payer MEDICARE, SELFPAY ==
--- NOTE | 2024-07-15 | PATH_ITS ---
[facility] Accession Number: [id number] No. of containers..01 Tissue . 01 Material submitted: . colon - DESCENDING POLYP X 3 . 01 Diagnosis: DESCENDING POLYP X 3: Tubular adenomas. Hyperplastic polyp. [facility] 07/17/2024 1624 Local . 01 Electronically signed: . Juan Ramon Fajardo MD, Pathologist NPI- [id number] . 01 Gross description: . Received in formalin with two patient identifiers and descending colon polyhp x3, are four padgett soft tissue fragments 0.3 to 0.7 cm in greatest dimension. Submitted in cassette A1. ([id number]) /FELICIA 07/17/2024 1624 Local . 01 Pathologist provided ICD-10: D12.4 . 01 CPT . 761567 Specimen Comment: A courtesy copy of this report has been sent to [facility] Pathology Performed at: [address] [address], [place], [place] [id number] MD Juan Ramon Fajardo MD Phone: [phone]
[2024-07-15 09:19] VITALS: BP 156/75; PULSE 85; RESP 16; TEMP 36.9; O2SAT 99
--- NOTE | 2024-07-15 10:09 | PM.HP.IH.1 ---
History of Present Illness History of Present Illness Date Patient Seen: 07/15/24 Time Patient Seen: 10:09 Chief complaint: Dx Colonoscopy w/poss bx Narrative: 73-year-old white male with a personal history of colon cancer status post resection, and colonoscopy with multiple polypectomies multiple times. Presents for his surveillance. No changes in health otherwise. [facility] Medical History (Updated 07/15/24 @ 10:10 by Felipe Dozier MD) Personal history of colon cancer Colon cancer Pre-diabetes Erectile dysfunction HTN (hypertension) Surgical History History of colon resection Social History household members: significant other Smoking Status: Never smoker alcohol intake: current Meds Home Medications and Allergies Home Medications Medication Instructions Recorded Confirmed Type amlodipine 5 mg tablet 5 mg PO DAILY ##0 09/17/20 07/15/24 History omeprazole 20 mg capsule,delayed 20 mg PO DAILY ##0 09/17/20 07/15/24 History release sildenafil 100 mg tablet 100 mg PO DAILY PRN Sexual 09/17/20 10/29/23 History Activity ##0 sodium,potassium,mag sulfates 17.5 See Rx Instructions PO .COMPLEX 06/17/24 Rx gram-3.13 gram-1.6 gram oral soln #354 mL (Suprep Bowel Prep Kit) atorvastatin 10 mg tablet 10 mg PO DAILY 07/15/24 07/15/24 History Allergies Allergy/AdvReac Type Severity Reaction Status Date / Time No Known Drug Allergies Allergy Verified 07/15/24 09:10 Review of Systems Review of Systems ROS: Yes All systems reviewed with the patient and are negative except as otherwise documented Exam Vital Signs (past 8 hours): - 07/15/24 09:19 Temperature 98.5 F Pulse Rate 85 Respiratory Rate 16 Blood Pressure 156/75 H Pulse Oximetry 99 Oxygen Delivery Method Room Air Oxygen Delivery Method Room Air Narrative Exam Narrative: Gen: NAD, sitting comfortably in bed, appears well HEENT: Sclera are anicteric, head is normocephalic and atraumatic, trachea is midline. CV: RRR, no JVD Resp: clear to auscultation bilaterally, equal chest wall movement bilaterally Abd: soft, nontender, normoactive bowel sounds Ext: no edema, full range of motion Neuro: Cranial nerves II-XII grossly intact, no focal deficits Skin: No erythema or ecchymosis Assessment & Plan Assessment and plan (1) Personal history of colon cancer: Status: Acute Assessment & Plan narrative: Patient presents for colonoscopy Risks, benefits, alternatives to colonoscopy explained, including but not limited to bowel perforation or other serious complication requiring surgery at less than 1 in 5000 colonoscopies, abdominal pain, cramping or bleeding and less than 1% of colonoscopies, and the chances that we find a diagnosis that would require further intervention of about 2%. Patient agrees to proceed. Time-Based Coding :: [TOTAL MINUTES] spent with patient and on the chart (including review of chart, obtaining history, exam, reviewing outside data, placing orders, documenting exam and treatment plan, and counseling patient) on [DATE]. PROFEE Plum Packer Document charge(s): No
--- NOTE | 2024-07-15 10:41 | PM.OP.COLON ---
Operative Date/Time/Diagnoses Date of procedure: 07/15/24 Time of procedure: 10:41 Pre-op diagnosis: Personal history of colon cancer and polyps Post-op diagnosis: same (3 polyps in the descending colon) Procedure & Clinicians Study performed: Colonoscopy with cold snare polypectomy x3 Same procedure as scheduled: Yes Indications: Personal history of colon cancer and polyps Surgeon: Felipe Dozier Procedure Notes SCOAP/Timeout: Performed Procedure in detail: Time-out was performed. Mac was induced. Patient was placed in left lateral decubitus position. The perineum was inspected without any gross abnormality. Lubricated pediatric colonoscope was inserted and advanced to the anastomosis. The terminal ileum was intubated. The colonoscope was withdrawn slowly inspecting the circumference of the colon. Three subcentimeter polyps were noted in the descending. All 3 were removed completely with cold snare polypectomy and retrieved. There was a previously tattooed area in the sigmoid which was inspected but there was no evidence of polypoid growth in this area. Very small polyps may have been missed, prep quality was adequate. Retroflexed view of the rectum showed small, non prolapsed nonbleeding internal hemorrhoids. The scope was withdrawn the patient was taken to PACU in good condition. Scope withdrawal time: 24 Sedation minutes: 26 Findings: polyp(s) Specimen(s): other (1. Descending colon polyps x3) Post-procedure Recommendations: Colonoscopy in 1 year Follow up: as needed Disposition: PACU
[2024-07-15 10:45] VITALS: BP 120/75; PULSE 70; RESP 18; TEMP 36.3; O2SAT 95
[2024-07-15 10:49] VITALS: PULSE 73; RESP 12; O2SAT 95
[2024-07-15 10:54] VITALS: BP 138/101; PULSE 66; RESP 14; TEMP 36.3; O2SAT 97
[2024-07-15 10:57] VITALS: BP 152/99; PULSE 69; RESP 12; O2SAT 98
== END 2024-07-15 11:10 | disposition home or self-care (01) ==
PROVIDERS: PCP Family Medicine; Referring Provider Surgery; Visit Provider Surgery
PROC: 0DJD8ZZ Inspection of Lower Intestinal Tract, Via Natural or Artificial Opening Endoscopic (ICD-10-PCS; CPT 45378; principal; 2024-07-15 09:45)
DX: Z12.11 Encounter for screening for malignant neoplasm of colon (principal); Z85.038 Personal history of other malignant neoplasm of large intestine; Z86.0100 Personal history of colon polyps, unspecified; K64.8 Other hemorrhoids; D12.4 Benign neoplasm of descending colon
CPT/HCPCS: 45385; J2704

== ENCOUNTER → 2024-09-15 09:05 | Outpatient (CLI) | payer MEDICARE, SELFPAY ==
[2024-09-15 10:39] LABS: Hematocrit 46.8 % (41-53); Mean Corpuscular HGB Conc 34.2 % (30-36); Mean Corpuscular Hemoglobin 31.7 PG (26-34); Mean Corpuscular Volume 92.6 fL (80-100); Platelet Count 251 X10^3/uL (150-400); Red Blood Cell Count 5.06 X10^6/uL (4.5-5.9); Red Cell Distribution Width 13.8 % (11.6-14.8); White Blood Cell Count 11.4 X10^3/uL (4.5-11.0)
[2024-09-15 10:50] LABS: Hemoglobin A1C% w Est Avg Glu 5.4 % (4.0-6.0)
[2024-09-15 11:04] LABS: Alanine Aminotransferase 25 IU/L (<50); Albumin 4.5 g/dL (3.5-5.0); Albumin Globulin Ratio 1.8 (1.0-2.8); Alkaline Phosphatase 68 U/L (38-126); Aspartate Aminotransferase 24 IU/L (17-59); BUN Creatinine Ratio 12.2 (6-22); Bilirubin Total 0.9 mg/dL (0.2-1.3); Blood Urea Nitrogen 17 mg/dL (9-20); Calcium 9.6 mg/dL (8.4-10.2); Carbon Dioxide 26 mmol/L (22-32); Chloride 103 mmol/L (98-107); Cholesterol 193 mg/dL (140-199); Estimated Glomerular Filt Rate 54 mL/min (>60); Globulin 2.5 g/dL (1.7-4.1); Glucose 107 mg/dL (80-110); HDL Cholesterol 79 mg/dL (40-60); HEMOLYSIS < 15 (0-50); LDL Cholesterol Calculated 92 mg/dL (<100); Sodium 139 mmol/L (137-145); Triglycerides 111 mg/dL (35-150)
[2024-09-15 11:37] LABS: Creatinine Urine Random 173.59 mg/dL
[2024-09-15 11:43] LABS: Microalbumin Urine Random 5.9 mg/dL (0-1.6)
== END ==
PROVIDERS: PCP Family Medicine; Referring Provider Family Medicine; Visit Provider Family Medicine
DX: I10 Essential (primary) hypertension (principal); R73.03 Prediabetes; Z13.220 Encounter for screening for lipoid disorders
CPT/HCPCS: 36415; 80053; 80061; 82043; 82570; 83036; 85027

== ENCOUNTER → 2025-05-13 12:45 | Outpatient (CLI) | payer MEDICARE, SELFPAY ==
--- NOTE | 2025-05-13 12:46 | DI.RAD.S_ITS ---
PROCEDURE: XR RIBS LT MIN 3V W CXR1V INDICATIONS: Fall anterior left lower ribs TECHNIQUE: 2 views of the ribs were acquired, along with a single view chest. COMPARISON: None. FINDINGS: Surgical changes and devices: None. Bones and chest wall: No acute displaced rib fracture. No suspicious bony lesions. Overlying soft tissues appear unremarkable. Lungs and pleura: No pleural effusions or pneumothorax. Lungs appear clear. Mediastinum: Mediastinal contours appear normal. Heart size is normal. IMPRESSION: No acute displaced rib fracture or pneumothorax. Approved by: Jj Waters M.D. on 05/13/2025 at 13:34
== END ==
PROVIDERS: PCP Family Medicine; Referring Provider Family Medicine; Visit Provider Nurse Practitioner Family
DX: R07.89 Other chest pain (principal)
CPT/HCPCS: 71101